=== PATIENT | female | born 1950 | race Two or more races ===

== ENCOUNTER 2018-02-18 07:29 | Outpatient (CLI) | payer OTHER ==
[~2018-02-18 07:29] MED LIST: AVAPRO300 MG; AVAPRO300 MG PO; LEXAPRO5 MG; PLAQUENIL; TOPROL XL100 MG PO; TOPROL XL50 M1 PO; TOPROL XL50 MG; TRICOR145 MG; TRICOR145 MG PO; TRICOR48 MG PO
== END 2018-02-18 08:00 | disposition home or self-care (01) ==
LOC: NUCLEAR 07:29
DX: I20.0 Unstable angina (principal); E78.2 Mixed hyperlipidemia
CPT/HCPCS: 78452; 93017; A9500

== ENCOUNTER 2018-09-10 17:15 | Outpatient (CLI) | payer OTHER | END 2018-09-10 18:38 | disposition home or self-care (01) | LOC: RAD 17:15 | DX: R05 Cough (principal) ==

== ENCOUNTER 2023-08-03 07:33 | Outpatient (CLI) | payer OTHER | END 2023-08-03 07:40 | disposition home or self-care (01) | LOC: RAD 07:33 | PROVIDERS: ATTEND Internal Medicine Rheumatology | DX: C50.912 Malignant neoplasm of unspecified site of left female breast (principal); M81.0 Age-related osteoporosis without current pathological fracture; M06.09 Rheumatoid arthritis without rheumatoid factor, multiple sites; Z88.6 Allergy status to analgesic agent ==

== ENCOUNTER 2024-07-30 09:50 | Outpatient (CLI) | payer OTHER | END 2024-07-30 10:01 | disposition home or self-care (01) | LOC: RAD 09:50 | DX: M25.512 Pain in left shoulder (principal); M25.511 Pain in right shoulder; M54.50 Low back pain, unspecified ==

== ENCOUNTER 2025-04-08 13:26 | Outpatient (CLI) | payer OTHER | END 2025-04-08 13:29 | disposition home or self-care (01) | LOC: RAD 13:26 | DX: M54.9 Dorsalgia, unspecified (principal); M06.09 Rheumatoid arthritis without rheumatoid factor, multiple sites; M81.0 Age-related osteoporosis without current pathological fracture ==